=== PATIENT | female | born 1995 | race Caucasian/White ===

== ENCOUNTER 2019-10-14 02:04 | Emergency (ER) | payer MEDICAID, OTHER ==
[~2019-10-14] VITALS: Ht 152.4 cm; Wt 44.5 kg
--- NOTE | 2019-10-14 02:57 | NUR ---
MOVING PATIENT TO ROOM 11 FOR GYNO BED
--- NOTE | 2019-10-14 03:32 | NUR ---
DR PEÑA AT BEDSIDE FOR PELVIC EXAM , BOYFRIENMariangel AT BEDSIDE PT TOLERATED EXAM WELL
--- NOTE | 2019-10-14 03:45 | NUR ---
LABS DRAWN AND SENT TO LAB
--- NOTE | 2019-10-14 04:05 | NUR ---
ULTRA SOUND AT BEDSIDE
[2019-10-14 04:10] LABS: BASOPHILS # (AUTO) 0.1 X10'3 (0-0.2); BASOPHILS % (AUTO) 0.9 % (0-1); EOSINOPHILS # (AUTO) 0.2 X10'3 (0-0.9); EOSINOPHILS % (AUTO) 1.9 % (0-6); HEMATOCRIT 38.4 % (35.0-45.0); HEMOGLOBIN 13.2 g/dl (12.0-16.0); LYMPHOCYTES # (AUTO) 2.4 X10'3 (1.1-4.8); LYMPHOCYTES % (AUTO) 29.9 % (21-51); MEAN CORPUSCULAR HEMOGLOBIN 30.9 PG (27.0-31.0); MEAN CORPUSCULAR HGB CONC 34.2 g/dL (33.0-36.5); MEAN CORPUSCULAR VOLUME 90.4 FL (78-98); MEAN PLATELET VOLUME 9.4 FL (7.4-10.4); MONOCYTES # (AUTO) 0.6 X10'3 (0-0.9); MONOCYTES % (AUTO) 7.2 % (2-12); NEUTROPHILS # (AUTO) 4.8 X10'3 (1.8-7.7); NEUTROPHILS % (AUTO) 60.1 % (42-75); PLATELET COUNT 300 X10'3 (140-440); RED BLOOD COUNT 4.25 X10'6 (4.20-5.60); RED CELL DISTRIBUTION WIDTH 13.3 % (11.5-14.5); WHITE BLOOD COUNT 8.1 X10'3 (4.5-11.0)
--- NOTE | 2019-10-14 05:48 | NUR ---
DR JOHNSTON TO BEDSIDE TO UPDATE PLAN OF CARE. PT IS GOING TO AWAIT DAY SHIFT ULTRA SOUND FOR A REPEAT ULTRA SOUND TO RULE OUT A POSSIBLE ETOPIC PREGNACY
--- NOTE | 2019-10-14 06:08 | NUR ---
PT RESTING IN BED WITH BOYFRIEND AWAITING DAYSHIFT ULTRASOUND . ALL VSS PT HAS CHANGED X1 PAD. PT MENTIONED THAT SHE HAS BEEN SPOTING SINCE LATE SEP , THAT IS WHEN SHE LEARNED SHE WAS . PT STATES IT HAS BEEN ONLY THE LAST TWO DAYS SHE HAS HAD HEAVIER BLEEDING . PT HAS CHAMGE HER PAD X1 SINCE ARIVE TO THE ED
--- NOTE | 2019-10-14 06:48 | NUR ---
ULTRASOUND AT BEDSIDE PER ORDERS NOW, BOYFRIEND CONTINUES TO BE AT BEDSIDE WITH PT.
--- NOTE | 2019-10-14 07:23 | NUR ---
CHIEF OF FIELD OPERATIONS FINISHING UP AND PROVIDING RESULTS TO DR SAUNDERS NOW
--- NOTE | 2019-10-14 08:01 | NUR ---
ANIMAL CAREGIVER AT BEDSIDE DISCUSSING PT CARE AT THIS TIME.
[2019-10-14 08:09] VITALS: BP 119/90
--- NOTE | 2019-10-14 08:13 | NUR ---
PT COMPLETING PAPERWORK AND WANTS TO HOLD OFF ON TRANSPORT VIA EMS TO [facility] AT THIS TIME UNTIL SHE HAS MORE INFORMATION, DR SAUNDERS IN ANOTHER ROOM WITH CRITICAL PT, WILL DISCUSS PT CONCERNS ABOUT TRANSPORT/TRANSFER TO [facility] VIA EMS WHEN HE IS OUT OF CRITICAL ROOM.
--- NOTE | 2019-10-14 08:27 | NUR ---
CALLED REPORT TO [facility] ED, GAVE SBAR REPORT, PT PACKET ER TO ER TRANSFER DR BETTENCOURT ACCEPTING ED DOCTOR [facility], ULTRASOUND IMAGES BEING UPLOADED TO [facility] NOW, TRANSFER VIA POV APPROVED BY DR SAUNDERS DUE TO PT STABILITY AND CONCERNS ABOUT EMS TRANSFER.
== END 2019-10-14 08:33 | disposition short-term general hospital (02) ==
LOC: ER 02:05
DX: O00.90 Unspecified ectopic pregnancy without intrauterine pregnancy (principal); O20.9 Hemorrhage in early pregnancy, unspecified; O99.341 Other mental disorders complicating pregnancy, first trimester; O99.331 Smoking (tobacco) complicating pregnancy, first trimester; O99.321 Drug use complicating pregnancy, first trimester; F41.9 Anxiety disorder, unspecified; F17.200 Nicotine dependence, unspecified, uncomplicated; F12.90 Cannabis use, unspecified, uncomplicated; Z91.018 Allergy to other foods; Z3A.01 Less than 8 weeks gestation of pregnancy
CPT/HCPCS: 36415; 76801; 76802; 76817; 76830; 84702; 85025; 86900; 86901; 99285